=== PATIENT | male | born 1970 | race American Indian/Alaskan Native ===

== ENCOUNTER 2022-06-13 05:16 | Emergency (ER) | payer BC ==
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
--- NOTE | 2022-06-13 09:02 | XRay Report ---
CERVICAL SPINE 3 VIEWS INDICATION: neck pain. COMPARISON: None. IMPRESSION: Normal alignment. No significant discogenic DJD or facet arthropathy. No acute osseous or soft tissue abnormality. Signer Name: Ronnell Palacio Jr, MD Signed: 06/13/2022 8:58 AM Workstation Name: [id number]
--- NOTE | 2022-06-13 09:25 | Cat Scan Report ---
CT head/brain wo con INDICATION: headache, contusion left scalp. TECHNIQUE: All CT scans at this location are performed using CT dose reduction for ALARA by means of automated e xposure control. COMPARISON: None available. FINDINGS: There is no evidence of hemorrhage, hydrocephalus, brain edema, or mass effect/mass lesion. There is overall normal brain formation and brain volume for the patient's age. Ventricular and cisternal/sulc al size is normal for age. There is mucosal thickening completely opacifying the frontal sinuses with questionable sinus expansi on. IMPRESSION: 1. No acute intracranial abnormality. 2. Mucoperiosteal thickening in the frontal sinuses with possible frontal sinus expansion which may i ndicate early mucocele formation. Signer Name: Odilon Dave MD Signed: 06/13/2022 9:21 AM Workstation Name: [id number]
[2022-06-13 10:11] VITALS: BP 140/78
== END 2022-06-13 10:11 | disposition home or self-care (01) ==
LOC: ED 05:16
DX: S16.1XXA Strain of muscle, fascia and tendon at neck level, initial encounter (principal); S00.03XA Contusion of scalp, initial encounter; M54.2 Cervicalgia; X58.XXXA Exposure to other specified factors, initial encounter; Y93.89 Activity, other specified; Y92.89 Other specified places as the place of occurrence of the external cause; Y99.8 Other external cause status
CPT/HCPCS: 70450; 72040; 99284